=== PATIENT | male | born 1985 | race African-American/Black ===

== ENCOUNTER 2025-02-27 21:40 | Emergency (ER) | payer OTHER ==
[~2025-02-27] VITALS: Ht 188 cm; Wt 154.2 kg
[2025-02-28 00:07] VITALS: BP 155/89; TEMP 98.6; O2SAT 99
== END 2025-02-28 02:22 | disposition home or self-care (01) ==
LOC: ER 21:44
DX: R09.89 Other specified symptoms and signs involving the circulatory and respiratory systems (principal); R06.02 Shortness of breath; I10 Essential (primary) hypertension; Z59.00 Homelessness unspecified
CPT/HCPCS: 71045-TC

== ENCOUNTER 2025-03-26 21:22 | Emergency (ER) | payer OTHER ==
[~2025-03-26] VITALS: Ht 188 cm; Wt 158.8 kg
[2025-03-26] MEDS ORDERED: AMLO10TA4 PO (23:49)
[2025-03-26] MEDS ORDERED: IBUP-1490 PO (23:54)
[2025-03-26] MEDS ORDERED: LIDOCAINE VISCOUS 2% UD 15 ML UDC ONE (23:59)
[2025-03-26] MEDS ORDERED: MAG HYDROX/AL HYDROX/SIMETH 30 ML UDC ONE (23:59)
[2025-03-27] MEDS: MAG HYDROX/AL HYDROX/SIMETH 30 ML UDC PO ONE (00:03)
[2025-03-27] MEDS: LIDOCAINE VISCOUS 2% UD 15 ML UDC MM ONE (00:03)
[2025-03-27 00:16] VITALS: BP 212/110; TEMP 98.5; O2SAT 95
== END 2025-03-26 23:50 | disposition home or self-care (01) ==
LOC: ER 21:34
DX: J39.2 Other diseases of pharynx (principal); E66.01 Morbid (severe) obesity due to excess calories; I10 Essential (primary) hypertension; Z68.41 Body mass index [BMI] 40.0-44.9, adult